=== PATIENT | female | born 1950 | race African-American/Black ===

== ENCOUNTER 2024-06-23 12:40 | Emergency (ER) | payer MEDICARE, MEDICAID ==
[~2024-06-23] VITALS: Ht 172.7 cm; Wt 95.0 kg
[2024-06-23 12:54] VITALS: O2SAT 97
[2024-06-23] MEDS ORDERED: SULF1TAB48 MT (14:10)
[2024-06-23] MEDS ORDERED: IBUP-2028 MT (14:10)
[2024-06-23] MEDS: KETOROLAC 15MG/ML VIAL IM ONE (14:42)
[2024-06-23] MEDS: SULFAMETHOXAZOLE/TRIMETHOPRIM 400/80MG TAB PO ONE (14:42)
[2024-06-23 15:15] VITALS: BP 144/87; PULSE 95; RESP 17; TEMP 97.9
== END 2024-06-23 15:25 | disposition home or self-care (01) ==
LOC: ER 12:40
DX: L03.116 Cellulitis of left lower limb (principal); K21.9 Gastro-esophageal reflux disease without esophagitis; I10 Essential (primary) hypertension; Z98.890 Other specified postprocedural states; Z85.9 Personal history of malignant neoplasm, unspecified
CPT/HCPCS: 99283; 96372; J1885